=== PATIENT | male | born 1990 | race Hispanic/Latino ===

== ENCOUNTER 2020-01-07 19:09 | Emergency (ER) | payer SELFPAY ==
[~2020-01-07] VITALS: Ht 185.4 cm; Wt 99.8 kg
--- OUTSIDE RECORDS SUMMARY | 2020-01-07 19:13 | XMS REPORT ---
[facility] Address Unknown Phone Unavailable Care Team Providers Care Application Security Engineer Name Role Phone Brii URIBE Unavailable Unavailable Problems This patient has no known problems. Allergies, Adverse Reactions, Alerts This patient has no known allergies or adverse reactions. Medications This patient has no known medications. Results Test Description Test Time Test Comments Text Results Atomic Results Result Comments CHEST 2 VIEWS 2019-12-13 23:05:00 [place] [address] Patient Name: SAPNA VEGA MR #: [id number] : 1990 Age/Sex: 29/M Req #: [id number] Adm Physician: Ordered by: NARESH URIBE MD Report #: [id number] Location: ER Room/Bed: Procedure: [id number] DX/CHEST 2 VIEWS Exam Date: 12/13/19 Exam Time: 2200 REPORT STATUS: Signed EXAMINATION: CHEST 2 VIEWS INDICATION: COUGH, C ONGESTION, SORE THROAT, CP COMPARISON: None FINDINGS: TUBES and LINES: None. LUNGS: Normal lung volumes. Subtle central bronchial wall thickening. No consolidations. PLEURA: No pleural effusion or pneumothorax. HEART AND MEDIASTINUM: The cardiomediastinal silhouette is unremarkable. BONES AND SOFT TISSUES: No acute osseous lesion. Soft tissues are unremarkable. UPPER ABDOMEN: No free air under the diaphragm. IMPRESSION: Subtle findings which can be seen with bronchitis. No consolidations. Signed by: Ralph Wilson DO on 12/13/2019 11:06 PM Dictated By: RALPH WILSON DO 05 Transcribed By: EDGAR on 12/13/192305 COPY TO: NARESH URIBE MD
== END 2020-01-07 19:58 | disposition home or self-care (01) ==
LOC: ER 19:09
DX: R05 Cough (principal); J00 Acute nasopharyngitis [common cold]; J30.1 Allergic rhinitis due to pollen
CPT/HCPCS: 99282